=== PATIENT | female | born 1960 | race African-American/Black ===

== ENCOUNTER → 2019-06-12 | Outpatient (CLI) | payer OTHER | LOC: M.RAD 05:38 | DX: Z12.31 Encounter for screening mammogram for malignant neoplasm of breast (principal) ==

== ENCOUNTER → 2020-07-22 | Outpatient (CLI) | payer OTHER | LOC: M.RAD 05:47 | PROVIDERS: ATTEND Family Medicine | DX: Z12.31 Encounter for screening mammogram for malignant neoplasm of breast (principal) ==

== ENCOUNTER → 2020-07-31 | Outpatient (CLI) | payer OTHER | LOC: M.ULTRA 07-30 09:00 | PROVIDERS: ATTEND Radiology Diagnostic Radiology | DX: N63.41 Unspecified lump in right breast, subareolar (principal) ==

== ENCOUNTER → 2020-08-11 | Outpatient (CLI) | payer OTHER ==
--- NOTE | 2020-08-12 15:10 | PATH ---
[address] [address] PATHOLOGY RPT PROCEDURE Name: RAE HORTA Room: [facility] Mary.#: [id number] Admission: 08/11/20 Date of : 58 Discharge: Report #: [id number] Path Case #: [id number] [facility] Accession Number: [id number] . 01 Material submitted: . breast - RIGHT BREAST 9:00 5CMFN. Modifiers: right, 9:00 . 01 Clinical history: . 2.87 X 1.72 X 1.64 CM . 02 Diagnosis: Right breast, 9:00, 5 cm from nipple, image guided core biopsies: - Benign fat without epithelial elements. See comment. (BULL:pit 08/12/2020) QTP 08/12/2020 1036 Local . 02 Comment: Reviewed with Dr. Mac Garcia who agrees with the diagnosis. Karen Acharya ([facility] breast navigator) notified at approximately 1215 on 08/12/2020. (BULL:[facility] 08/12/2020) . 02 Electronically signed: . Abebe Stapleton MD, Pathologist NPI- [id number] . 01 Gross description: . The specimen is received in formalin, labeled "Rae Horta, right breast 9:00 5 cm from nipple". Received are multiple needle cores of fibrofatty tissue measuring 1.4 x 1.0 x 0.1 cm in aggregate dimensions. The specimen is submitted entirely in cassettes A1 through A3. The cold ischemic time is 19 minutes. The total formalin fixation time is 11 hours and 59 minutes. (CAA; 08/11/2020) QAC/QAC 08/11/2020 1551 Local . 02 Pathologist provided ICD-10: N63.10 . 02 CPT . 211989 Specimen Comment: A courtesy copy of this report has been sent to [phone] Specimen Comment: [phone], Specimen Comment: Report sent to ,DR HARDING / DR ACHARYA Performed at: [address], [place], [place] [id number] [place] [address] PATHOLOGY RPT PROCEDURE Name: RAE HORTA [facility] [id number] Admission: 08/11/20 Date of : 58 Discharge: Report #: [id number] Path Case #: [id number] MD Manjit Saenz MD Phone: [phone] Performed at: [address] [facility] [address] [place] [id number] MD Abebe Stapleton MD Phone: [phone]
== END | disposition home or self-care (01) ==
LOC: M.ULTRA 05:38
PROVIDERS: ATTEND Family Medicine
DX: R92.8 Other abnormal and inconclusive findings on diagnostic imaging of breast (principal); N63.10 Unspecified lump in the right breast, unspecified quadrant

== ENCOUNTER → 2020-08-21 | Outpatient (CLI) | payer OTHER ==
--- NOTE | 2020-08-25 16:06 | PATH ---
[address] [address] PATHOLOGY RPT PROCEDURE Name: RAE HORTA Room: [facility] Mary.#: [id number] Admission: 08/21/20 Date of : 58 Discharge: Report #: [id number] Path Case #: [id number] [facility] Accession Number: [id number] . 01 Material submitted: . breast - RIGHT BREAST, 9:00, 5CMFN. Modifiers: right, 9:00 . 01 Clinical history: . RIGHT BREAST 2.46 X 2.09 X 0.94 CM . 02 Diagnosis: Right breast, 9:00, 5 cm from nipple, image guided core biopsies: - Benign breast tissue with fat necrosis, adenosis, apocrine change and coarse luminal calcifications, negative for atypia. See comment. LBQ 08/22/2020 1555 Local . 02 Comment: Reviewed with Dr. Shara Ramírez who agrees with the diagnosis. (BULL/db; 08/22/2020) . 02 Electronically signed: . Abebe Stapleton MD, Pathologist NPI- [id number] . 01 Gross description: . The specimen is received in formalin, labeled "Rae Horta, right breast 9:00 5 cm from nipple". Received are multiple needle cores of fibrofatty tissue measuring 4.2 x 3.9 x 0.6 cm in aggregate dimensions. The specimen is submitted entirely in cassettes A1 through A3. The cold ischemic time is 4 minutes. The total formalin fixation time is 12 hours and 7 minutes. (CAA; 08/21/2020) QAC/QAC 08/21/2020 1631 Local . 02 Pathologist provided ICD-10: N64.1, N60.21 . 02 CPT . 588471 Specimen Comment: A courtesy copy of this report has been sent to [phone] Specimen Comment: [phone], Specimen Comment: Report sent to ,DR HARDING / DR TYLER Performed at: [address] [place] [id number] MD Manjit Saenz MD Phone: [phone] Performed at: [address] [place] [address] PATHOLOGY RPT PROCEDURE Name: RAE HORTA Room: [facility]#: [id number] Admission: 08/21/20 Date of : 58 Discharge: Report #: [id number] Path Case #: [id number] [facility] [address], [place], [place] [id number] MD Abebe Stapleton MD Phone: [phone]
== END | disposition home or self-care (01) ==
LOC: M.ULTRA 08:14
PROVIDERS: ATTEND Family Medicine
DX: N60.21 Fibroadenosis of right breast (principal); N60.81 Other benign mammary dysplasias of right breast; N64.1 Fat necrosis of breast; R92.1 Mammographic calcification found on diagnostic imaging of breast

== ENCOUNTER → 2021-01-19 | Outpatient (CLI) | payer OTHER ==
[2021-01-19 09:12] LABS: ALBUMIN 4.3 g/dL (3.4-5.0); CALCIUM 9.5 mg/dL (8.5-10.1); CREATININE 1.1 mg/dL (0.6-1.3); POTASSIUM 4.1 mmol/L (3.5-5.1); TOTAL BILIRUBIN 0.3 mg/dL (<0.1-1.0); TOTAL PROTEIN 7.5 g/dL (6.4-8.2)
[2021-01-19 22:10] LABS: GLYCOHEMOGLOBIN (HGB A1C) 5.8 % (4.8-5.6)
== END ==
LOC: M.LAB 08:28
PROVIDERS: ATTEND Family Medicine
DX: E88.81 Metabolic syndrome and other insulin resistance (principal)

== ENCOUNTER → 2021-02-17 | Outpatient (CLI) | payer OTHER | LOC: M.RAD 05:40 | PROVIDERS: ATTEND Family Medicine | DX: N63.0 Unspecified lump in unspecified breast (principal) ==

== ENCOUNTER → 2021-07-27 | Outpatient (CLI) | payer OTHER | LOC: M.RAD 05:44 | PROVIDERS: ATTEND Family Medicine | DX: Z12.31 Encounter for screening mammogram for malignant neoplasm of breast (principal) ==

== ENCOUNTER → 2021-08-04 | Outpatient (CLI) | payer OTHER ==
[2021-08-04 06:20] LABS: ABSOLUTE BASOPHILS 0.1 thou/uL (0.0-0.2); ABSOLUTE LYMPHOCYTES 1.5 thou/uL (0.8-5.3); ABSOLUTE MONOCYTES 0.3 thou/uL (0.0-1.2); ABSOLUTE NEUTROPHILS 1.8 thou/uL (1.6-8.1); BASOPHILS 1.4 %; EOSINOPHILS 0.7 %; HEMATOCRIT 37.5 % (37.0-47.0); HEMOGLOBIN 12.5 gm/dL (12.0-15.0); LYMPHOCYTES 41.1 %; MCH 26.7 pg (26.0-34.0); MCHC 33.3 g/dL (28.0-37.0); MCV 80.2 fL (80.0-100.0); MONOCYTES 7.3 %; MPV 7.6 fl. (7.2-11.1); NUCLEATED RBCS 0 /100WBC; PLATELET COUNT* 270 thou/uL (150-400); POLYS 49.5 %; RBC 4.68 mil/uL (4.20-5.00); RDW-CV 13.5 % (10.5-14.5); WBC 3.7 thou/uL (4.0-11.0)
[2021-08-04 06:38] LABS: ALBUMIN 4.3 g/dL (3.4-5.0); ALKALINE PHOSPHATASE 91 U/L (46-116); ANION GAP 9 mmol/L (7-16); BUN 13 mg/dL (7-18); CALCIUM 9.1 mg/dL (8.5-10.1); CHLORIDE 103 mmol/L (98-107); CHOLESTEROL 184 mg/dL (<200); CO2 28 mmol/L (21-32); CREATININE 1.1 mg/dL (0.6-1.3); GLUCOSE 102 mg/dL (70-99); HDL CHOLESTEROL 66 mg/dL (>40); LDL CHOLESTEROL 106 mg/dL (<100); POTASSIUM 3.8 mmol/L (3.5-5.1); SGOT 16 U/L (15-37); SGPT 25 U/L (30-65); SODIUM 140 mmol/L (136-145); TC:HDL 2.8 Ratio (Not establshd); TOTAL BILIRUBIN 0.3 mg/dL (<0.1-1.0); TOTAL PROTEIN 7.9 g/dL (6.4-8.2); TRIGLYCERIDE 64 mg/dL (<150); VLDL 13 mg/dL (<40)
[2021-08-04 06:39] LABS: SERUM ASSESSMENT Clear
[2021-08-04 22:06] LABS: GLYCOHEMOGLOBIN (HGB A1C) 6.1 % (4.8-5.6)
== END ==
LOC: M.ULTRA 05:47
PROVIDERS: ATTEND Family Medicine
DX: Z00.00 Encounter for general adult medical examination without abnormal findings (principal); R92.8 Other abnormal and inconclusive findings on diagnostic imaging of breast